=== PATIENT | male | born 1975 | race Hispanic/Latino ===

== ENCOUNTER 2019-11-26 15:16 | Inpatient (IN) | payer OTHER, SELFPAY ==
[2019-11-26] MEDS ORDERED: cefTRIAXone\\ROCEPHIN 2 GM VIAL ONE (15:36)
[2019-11-26] MEDS ORDERED: Magnesium 2 GM/50 ML BAG (IN WATER) ONE (15:36)
[2019-11-26] MEDS ORDERED: Azithromycin 500 MG VIAL ONE (15:36)
[2019-11-26] MEDS ORDERED: methylPREDNISolone Sod Succ/PF 125 MG/2 ML VIAL ONE (15:36)
[2019-11-26] MEDS ORDERED: Albuterol Sulfate 2.5 mg/3 ml Neb ONE (15:46)
[2019-11-26 15:53] LABS: #Eosinphils 0.1 thou/uL (0.0-0.7); #Lymphocytes 1.2 thou/uL (1.20-3.40); #Monocytes 0.6 thou/uL (0.11-0.59); #Neutrophils 16.4 thou/uL (1.40-6.50); %Basophils 0.1 % (0.0-1.0); %Eosinophils 0.4 % (0.0-10.0); %Lymphocytes 6.4 % (21.0-51.0); %Monocytes 3.4 % (0.0-10.0); %Neutrophils 89.8 % (42.0-75.0); Hemoglobin 16.4 g/dL (14.0-18.0); Mean Corpuscular HGB CONC 32.8 g/dL (32.0-36.0); Mean Corpuscular Hemoglobin 29.2 pg (27.0-31.0); Mean Corpuscular Volume 88.8 fL (78.0-98.0); Mean Platelet Volume 8.6 fL (7.4-10.4); Platelet Count 311 thou/uL (130-400); RBC Distribution Width 13.2 % (11.5-14.5); Red Blood Cell (RBC) Count 5.62 mill/uL (4.70-6.10); White Blood Cell (WBC) Count 18.3 thou/uL (4.8-10.8)
[2019-11-26 16:14] LABS: ALT (SGPT) 17 U/L (8-55); AST (SGOT) 10 U/L (5-34); Albumin 4.4 g/dL (3.5-5.0); Alkaline Phosphatase 60 U/L (40-110); Anion Gap 18 mmol/L (10-20); BUN (Urea Nitrogen) 16 mg/dL (8.9-20.6); Bilirubin, Total 0.3 mg/dL (0.2-1.2); Calc. Creatinine Clearance 0 mL/min (70-130); Calcium 9.5 mg/dL (7.8-10.44); Carbon Dioxide 23 mmol/L (22-29); Chloride 105 mmol/L (98-107); Estimated GFR-MDRD 85; Globulin 2.8 g/dL (2.4-3.5); Glucose 120 mg/dL (70-105); Magnesium 2.1 mg/dL (1.6-2.6); Potassium 4.6 mmol/L (3.5-5.1); Protein, Total 7.2 g/dL (6.0-8.3); Sodium 141 mmol/L (136-145)
--- NOTE | 2019-11-26 16:24 | RAD ---
RADIOGRAPH CHEST 1 VIEW: Date: 11-26-2019 Time: 3:35 P.M. HISTORY: 44-year-old male follow up pneumonia. Dyspnea. COMPARISON: 11-21-2019 FINDINGS: The previously demonstrated focal infiltrate at the right medial lung base has decreased significantl y. New finding of plate-like densities at the left mid and lower lung zones, representing subsegmental a telectasis. New finding of small patchy nodular opacity at right parahilar midlung field medially. No cardiomegaly, pulmonary edema, or pneumothorax. No effacement of lateral costophrenic angles. IMPRESSION: 1. Interval significant improvement in the previously demonstrated right lower lobe infiltrate. 2. Questionable new mild right parahilar infiltrate versus subsegmental atelectasis. 3. New subsegmental atelectasis at the left mid and lower lung zones. JN [] POS: AH
[2019-11-26 16:34] LABS: Bilirubin Negative (Negative); Blood, Urine Negative (Negative); Clarity Clear (Clear); Glucose, Urine (Dipstick) Normal (Negative); Ketone, Urine Negative (Negative); Leukocyte Negative Leu/uL (Negative); Nitrite Negative (Negative); Protein, Urine (Dipstick) Negative (Neg-Trace); Specific Gravity, Urine 1.013 (1.002-1.036); Urobilinogen Normal mg/dL (Less than 2); pH, Urine 6.5 (5.0-9.0)
[2019-11-26] MEDS ORDERED: Ondansetron PF 4 MG/2 ML Vial IVP PRN (18:39)
[2019-11-26] MEDS ORDERED: Labetalol HCl 100 MG/20 ML VIAL SLOW IVP PRN (18:39)
[2019-11-26] MEDS ORDERED: Benzonatate 100 MG CAP PO PRN (18:39)
[2019-11-26] MEDS ORDERED: Ondansetron ODT 4 MG TAB PO PRN (18:39)
[2019-11-26] MEDS ORDERED: Diabetic Tussin 200 MG/10 ML UDCUP PO PRN (18:39)
[2019-11-26 19:26] LABS: Lactic Acid 2.7 mmol/L (0.5-2.2)
[2019-11-26 20:16] VITALS: BMI 29.0
[2019-11-26] MEDS ORDERED: Montelukast Sodium 10 mg Tablet PO SCH (21:00)
[2019-11-26] MEDS: Famotidine 20 MG TAB PO SCH (21:54)
[2019-11-26] MEDS: Cefdinir 300 MG CAP PO SCH (21:54)
[2019-11-26] MEDS: Acetaminophen 500 MG TAB PO PRN (22:32)
--- NOTE | 2019-11-26 23:08 | HP ---
PRIMARY CARE PROVIDER: Cris. CHIEF COMPLAINT: Shortness of breath. HISTORY OF PRESENT ILLNESS: This is a 44-year-old male, who presents to [facility] Emergency after recent admission from 11/21/2019 through 11/23/2019, for asthma exacerbation. The patient states he was discharged home on Levaquin, prednisone, DuoNebs and Ventolin metered-dose inhaler, which he has been using repetitively without specific relief. The patient reports persistent cough, wheezing despite the use of inhalers and medication. The patient states he recently moved to the [facility] from [place], [place] and has had increased difficulty with respiratory complications over the last year. The patient admits to smoking in the past, but none currently. The patient states the asthma attacks have disrupted his life as well as causing him to lose employment due to frequent exacerbations causing him to miss work days. The patient denies any documented fever, chills, hemoptysis, chest pain, or exposure history. In the emergency room, the patient underwent general evaluation including chest imaging showing evidence of atelectasis, but no acute infiltrates. COVID-19 was negative from 11/21/2019. The patient received intravenous normal saline x2 L in addition to azithromycin, Rocephin, albuterol, DuoNebs, magnesium sulfate and Solu-Medrol. The patient's O2 saturations remain in the 93% to 94% range on room air. PAST MEDICAL HISTORY: 1. Moderate asthma with intermittent exacerbations. 2. Acute hypoxic respiratory failure due to #1. PAST SURGICAL HISTORY: Status post right wrist repair. CURRENT MEDICATIONS: 1. Levofloxacin 750 mg p.o. daily. 2. Prednisone 50 mg p.o. daily. 3. DuoNebs q.i.d. p.r.n. 4. Tramadol 50 mg p.o. b.i.d. p.r.n. 5. Ventolin metered-dose inhaler 2 puffs q.6 hours p.r.n. ALLERGIES: NO KNOWN DRUG ALLERGIES. FAMILY HISTORY: No inheritable diseases per patient report. SOCIAL HISTORY: Resides in the [facility]. Unemployed. Remote tobacco use, none currently. No alcohol or illicit drug use. Functional of all activities of daily living. REVIEW OF SYSTEMS: CONSTITUTIONAL: Negative for weight loss or gain, ability to conduct usual activities. SKIN: Negative for rash, itching. EYES: Negative for double vision, pain. ENT/MOUTH: Negative for nose bleeding, neck stiffness, pain, tenderness. CARDIOVASCULAR: Negative for palpitations, dyspnea on exertion, orthopnea. RESPIRATORY: Negative for shortness of breath, wheezing, cough, hemoptysis, fever or night sweats. GASTROINTESTINAL: Negative for poor appetite, abdominal pain, heartburn, nausea, vomiting, constipation, or diarrhea. GENITOURINARY: Negative for urgency, frequency, dysuria, nocturia. MUSCULOSKELETAL: Negative for pain, swelling. NEUROLOGIC/PSYCHIATRIC: Negative for anxiety, depression. ALLERGY/IMMUNOLOGIC: Negative for skin rash, bleeding tendency. Otherwise negative except as stated per HPI. PHYSICAL EXAMINATION: VITAL SIGNS: Blood pressure 150/86, pulse 110, respiratory rate 36, O2 saturation 93% on room air, temperature 98 degrees Fahrenheit. GENERAL APPEARANCE: This is a 44-year-old male, alert and oriented x3, pleasant, responsive, in mild respiratory distress. HEENT: Pupils are equal, round, reactive to light and accommodation. Extraocular muscles are intact. No scleral icterus. No conjunctival injection. Nares patent. OP is clear. Teeth in fair repair. NECK: Supple. No cervical adenopathy. No thyromegaly. No carotid bruits. No JVD appreciated. Cervical spine with full active and passive range of motion. No meningeal signs noted. CHEST: Diminished breath sounds bilaterally with inspiratory and expiratory wheezing. Coarse rhonchi bilaterally. CARDIOVASCULAR EXAM: S1, S2 without noted murmur, rub, or gallop. ABDOMEN: Rounded, soft, nontender, and nondistended. Bowel sounds are positive in all 4 quadrants. There is no hepatosplenomegaly. No abdominal bruits. No rebound or guarding appreciated. EXTREMITIES: Warm and dry with fair turgor. No clubbing, cyanosis, or asymmetric edema appreciated. Pulses are palpable distally at the dorsalis pedis, posterior tibial, and popliteal arteries bilaterally. Capillary refill less than 2 seconds. NEUROLOGIC: Cranial nerves 2 through 12 are grossly intact. No focal or lateralizing signs appreciated. PERTINENT LABORATORY AND X-RAY FINDINGS: Basic metabolic profile within normal limits. Lactic acid level 5.8. LFTs within normal limits. Magnesium 2.1. Troponin negative x1. BNP less than 10. CBC showed a white blood cell count of 18.3, hemoglobin 16, hematocrit 50, platelet count 311 with 90% neutrophilia. Urinalysis dated 11/26/2019 negative. IMAGING: Portable chest x-ray dated 11/26/2019, showed improved infiltrates compared with previous chest imaging from 11/21/2019. Bibasilar atelectasis noted. EKG dated from 11/26/2019, by my interpretation shows sinus mechanism with heart rates in the 90s. Normal R-wave progression noted in the precordial leads. Normal axis. No acute ST-T wave changes appreciated. ASSESSMENT AND PLAN: 1. Acute asthma exacerbation. The patient will be admitted to the telemetry unit. We will continue pulmonary supportive management. DuoNebs q.4 hours scheduled. Solu-Medrol 40 mg IV q.6 hours. Omnicef 300 mg p.o. b.i.d. Dulera 2 puffs inhaled b.i.d. Add Singulair 10 mg daily. Continue oxygen supplementation to maintain O2 saturation greater than or equal to 90%. 2. Acute hypoxic respiratory failure. Continue oxygen supplementation to maintain O2 saturation greater than or equal to 90%. Serial pulse oximetry monitoring. 3. Systemic inflammatory response syndrome. The patient meeting criteria given tachycardia and tachypnea on admission. Continue management as outlined previously. 4. Leukocytosis with neutrophilia. Suspect secondarily to recent prednisone prescription. Repeat CBC in the a.m. 5. Lactic acidosis. Suspect secondarily to asthma exacerbation. Repeat lactic acid level and continue management as outlined in #1. 6. Prophylaxis. Sequential compression devices while in bed. Pepcid 20 mg p.o. b.i.d. CODE STATUS: Full. Surrogate medical decision maker is patient's spouse. Job ID: [id number]
[2019-11-26] MEDS: methylPREDNISolone Sod Succ 40 MG VIAL IVP SCH (23:40)
[2019-11-27] MEDS ORDERED: traMADol HCl 50 MG TAB PO PRN (01:12)
[2019-11-27] MEDS ORDERED: traMADol HCl 50 MG TAB PO SCH ×2 (01:15→21:00)
[2019-11-27] MEDS: methylPREDNISolone Sod Succ 40 MG VIAL IVP SCH ×2 (06:26→11:37)
[2019-11-27] MEDS ORDERED: Mometasone 200 MCG/Formoterol 5 MCG 120 PUFF INHALER INH SCH (06:30)
[2019-11-27 06:44] LABS: #Basophils 0.1 thou/uL (0.0-0.2); #Eosinphils 0.1 thou/uL (0.0-0.7); #Lymphocytes 0.7 thou/uL (1.20-3.40); #Monocytes 0.4 thou/uL (0.11-0.59); #Neutrophils 14.3 thou/uL (1.40-6.50); %Basophils 0.4 % (0.0-1.0); %Eosinophils 0.7 % (0.0-10.0); %Lymphocytes 4.2 % (21.0-51.0); %Monocytes 2.5 % (0.0-10.0); %Neutrophils 92.2 % (42.0-75.0); Hemoglobin 14.9 g/dL (14.0-18.0); Mean Corpuscular HGB CONC 32.9 g/dL (32.0-36.0); Mean Corpuscular Hemoglobin 29.3 pg (27.0-31.0); Mean Corpuscular Volume 89.2 fL (78.0-98.0); Mean Platelet Volume 8.2 fL (7.4-10.4); Platelet Count 272 thou/uL (130-400); RBC Distribution Width 13.2 % (11.5-14.5); Red Blood Cell (RBC) Count 5.08 mill/uL (4.70-6.10); White Blood Cell (WBC) Count 15.5 thou/uL (4.8-10.8)
[2019-11-27 07:02] LABS: Anion Gap 14 mmol/L (10-20); BUN (Urea Nitrogen) 12 mg/dL (8.9-20.6); Calc. Creatinine Clearance 170 mL/min (70-130); Calcium 8.8 mg/dL (7.8-10.44); Carbon Dioxide 24 mmol/L (22-29); Chloride 105 mmol/L (98-107); Estimated GFR-MDRD Greater than 90; Glucose 109 mg/dL (70-105); Potassium 4.8 mmol/L (3.5-5.1); Sodium 138 mmol/L (136-145)
[2019-11-27] MEDS: Cefdinir 300 MG CAP PO SCH (08:42)
[2019-11-27] MEDS: Famotidine 20 MG TAB PO SCH (08:42)
[2019-11-27] MEDS ORDERED: Senokot S 8.6-50 MG TAB PO SCH (09:00)
[2019-11-27] MEDS ORDERED: Loratadine 10 MG TAB PO SCH (09:00)
--- NOTE | 2019-11-27 12:00 | PDOC.HOSPP ---
- Subjective Encounter Date: 11/27/19 Encounter Time: 11:50 Subjective: f/u for asthma exacerbation currently receiving Solumedrol/Duonebs/Dulera/Omnicef. Overall feels better but still some residual wheezing. - Objective Vital Signs & Weight: Vital Signs (12 hours) Temp Pulse Resp BP Pulse Ox 11/27/19 11:06 97.9 F 93 16 123/79 93 L 11/27/19 10:29 90 16 98 11/27/19 07:38 98.3 F 105 H 18 119/69 94 L 11/27/19 07:10 97 11/27/19 07:09 92 16 97 11/27/19 07:08 97 20 94 L 11/27/19 04:15 97.6 F 105 H 20 122/63 95 11/27/19 02:19 99 16 94 L Weight Weight 203 lb 0.732 oz I&O: 11/26/19 11/27/19 11/28/19 06:59 06:59 06:59 Intake Total 240 Balance 240 Result Diagrams: 11/27/19 06:16 11/27/19 06:15 Additional Labs: Microbiology 11/26/19 15:33 Venous blood - Right Arm Blood Culture - Preliminary Specimen has been received and culture in progress. No Growth to date. 11/26/19 15:33 Venous blood - Left Arm Blood Culture - Preliminary Specimen has been received and culture in progress. No Growth to date. Laboratory Tests 11/26/19 11/26/19 11/26/19 15:33 15:33 19:02 WBC 18.3 H Lactic Acid 5.8 H* 2.7 H EKG Reviewed by me: Yes (Tele - SR) Hospitalist ROS - Medication Medications: Active Medications Generic Name Dose Route Start Last Admin Trade Name Freq PRN Reason Stop Dose Admin Acetaminophen 1,000 mg 11/26/19 18:39 11/26/19 22:32 Acetaminophen 500 Mg Tab PO 1,000 mg Q6H PRN Administration Mild Pain (1-3) Albuterol/Ipratropium 3 ml 11/26/19 22:30 11/27/19 10:29 Ipratropium/Albuterol Sulfate 3 Ml Neb NEB 3 ml [id number] YAMINI Administration Benzonatate 100 mg 11/26/19 18:39 09/22/20 06:22 Benzonatate 100 Mg Cap PO 100 mg Q6H PRN Administration Cough Cefdinir 300 mg 11/26/19 21:00 11/27/19 08:42 Cefdinir 300 Mg Cap PO 300 mg BID YAMINI Administration Famotidine 20 mg 11/26/19 21:00 11/27/19 08:42 Famotidine 20 Mg Tab PO 20 mg BID YAMINI Administration Loratadine 10 mg 11/27/19 09:00 11/27/19 08:42 Loratadine 10 Mg Tab PO 10 mg DAILY YAMINI Administration Methylprednisolone Sodium Succinate 40 mg 11/26/19 23:59 11/27/19 11:37 Methylprednisolone Sod Succ 40 Mg Vial IVP 40 mg Q6HR YAMINI Administration Mometasone Furoate/Formoterol Fumar 2 puff 11/27/19 06:30 11/27/19 07:08 Mometasone 200 Mcg/Formoterol 5 Mcg 120 Puff Inhaler INH 2 puff BID-RT YAMINI Administration Montelukast Sodium 10 mg 11/26/19 21:00 11/26/19 21:54 Montelukast Sodium 10 Mg Tablet PO 10 mg QPM YAMNII Administration Senna/Docusate Sodium 1 tab 11/27/19 09:00 11/27/19 08:42 Senokot S 8.6-50 Mg Tab PO 1 tab BID YAMINI Administration - Exam General Appearance: NAD, awake alert Eye: PERRL, anicteric sclera ENT: normocephalic atraumatic, no oropharyngeal lesions Neck: supple, symmetric, no JVD, no thyromegaly, no lymphadenopathy Heart: RRR, no murmur, no gallops, no rubs, normal peripheral pulses Heart - other findings: S1, S2 Respiratory: rhonchi, wheezes Respiratory - other findings: diminished in bases bilat Gastrointestinal: soft, non-tender, non-distended, normal bowel sounds, no palpable masses Extremities: no cyanosis, no clubbing, no edema Skin: normal turgor, no lesions Neurological: cranial nerve grossly intact, no new deficit Musculoskeletal: normal tone, normal strength, no muscle wasting Psychiatric: normal affect, A&O x 3 Hosp A/P (1) Asthma exacerbation Code(s): J45.901 - UNSPECIFIED ASTHMA WITH (ACUTE) EXACERBATION Status: Acute Qualifiers: Asthma severity: moderate Plan: Improved, continue Solumedrol/Duonebs/Dulera/O2 PRN (2) Acute respiratory failure with hypoxia Code(s): J96.01 - ACUTE RESPIRATORY FAILURE WITH HYPOXIA Status: Acute Plan: O2 PRN, monitor serial pulse ox (3) SIRS (systemic inflammatory response syndrome) Code(s): R65.10 - SIRS OF NON-INFECTIOUS ORIGIN W/O ACUTE ORGAN DYSFUNCTION Status: Acute Plan: Improved, see above for mgmt (4) Neutrophilic leukocytosis Code(s): D72.9 - DISORDER OF WHITE BLOOD CELLS, UNSPECIFIED Status: Acute Plan: Likely due to steroids - Plan continue antibiotics, director of social media marketing, respiratory therapy, out of bed/ambulate, DVT proph w/SCDs Stable currently Continue Solumedrol Continue Dulera/Omnicef O2 PRN OOB/ambuate Likely home in am
[2019-11-27] MEDS: Acetaminophen 500 MG TAB PO PRN (13:47)
[2019-11-27 16:01] VITALS: BP 120/76; TEMP 98.4
--- NOTE | 2019-11-28 03:47 | DIS ---
DATE OF ADMISSION: 11/26/2019 DATE OF DISCHARGE: 11/27/2019 DISCHARGE DIAGNOSES: 1. Acute asthma exacerbation. 2. Acute hypoxic respiratory failure secondary to #1, improved. 3. Systemic inflammatory response syndrome. 4. Neutrophilic leukocytosis. CONSULTATIONS: None. PERTINENT LABORATORY AND X-RAY FINDINGS: Lactic acid level ranged between 2.7 to 5.8. BNP less than 10. CBC showed a white blood cell count ranging between 15.5 to 18.3. Blood cultures x2 dated 11/26/2019, showed no growth to date. Portable chest x-ray dated 11/26/2019, showed significant improvement and previously demonstrated right lower lobe infiltrate. Question of subsegmental atelectasis. HOSPITAL COURSE: The patient was initially admitted after presenting with increased shortness of breath and hypoxia in the context of known asthma. The patient was diagnosed with an asthma exacerbation, receiving DuoNeb therapy in addition to IV Solu-Medrol and Omnicef. The patient also received intravenous normal saline x2 L and placed on oxygen supplementation initially. The patient rapidly clinically improved, however, clinically exhibited inspiratory and expiratory wheezing despite O2 saturations in the 93% range on room air. The patient decided he was feeling fine and would like to leave against medical advice on 11/27/2019. The patient received instructions and left against medical advice after filling out appropriate documentation. Job ID: [id number]
--- NOTE | 2019-11-29 06:54 | PQF ---
Dear : Joselito Lomas Date 11/29/19 Please exercise your independent, professional judgment in responding to the clarification form. Clinical indicators are provided on the bottom of this form for your review Can you please further clarify if Pneumonia is ruled in or ruled out? Pneumonia [ ] Ruled in diagnosis [ ] Continue to treat [ ] Resolved [ x ] Ruled out diagnosis [ ] Improving [ ] Cannot rule out diagnosis [ ] Other diagnosis [ ] Unable to determine Physician Signature: Date/Time: For continuity of documentation, please document condition throughout progress notes and discharge summary. Thank You. To be completed by CDI/Coding staff for physician review: Present Clinical Indicators - Signs / Symptoms / Labs Results and Location in Medical Record [ x ] Pneumonia, septic shock ED Provider pg.3 [ x ] X ray shows a new infiltrate with resolving old infiltrate ED Provider pg.3 [ x ] Shortness of breath H and P pg.1 [ x ] The patient was diagnosed with an asthma exacerbation DS pg.1 [ x ] Questionable new mild right parahilar infiltrate vs subsegmental atelectasis Chest X ray pg.1 [ x ] WBC 18.3H, 15.5H Laboratory [ x ] Diminished breath sounds bilaterally with inspiratory and expiratory wheezing. Coarse rhonchi bilaterally PN 11/25 Present Risk Factors Results and Location in Medical Record [ x ] Smoke in the past H and P pg.1 [ x ] Acute hypoxic respiratory failure H and P pg.1 [ x ] Asthma H and P pg.1 [ x ] Systemic inflamatory response syndrome DS pg.1 Present Treatments Results and Location in Medical Record [ x ] Chest X ray 11/25 [ x ] IV Fluids MAR [ x ] O2 supplementation DS pg.1 [ x ] Albuterol inhalation 8.5gm MAR [ x ] Azithromycin 500mg MAR [ x ] Cefdinir 300mg po MAR CDS/Bariatric Coordinator Signature: Kevin Lopez Phone #: [phone] Date: 11/29/19 This is a permanent part of the Medical Record [facility]
== END 2019-11-27 16:42 | disposition left against medical advice (07) | DRG 189 ==
LOC: ERS 15:16 → 2NO 17:39
PROVIDERS: ADMIT Family Medicine; ATTEND Family Medicine
DX: J96.01 Acute respiratory failure with hypoxia (principal); J45.901 Unspecified asthma with (acute) exacerbation; R65.10 Systemic inflammatory response syndrome (SIRS) of non-infectious origin without acute organ dysfunction; J98.11 Atelectasis; E87.2 Acidosis; D70.8 Other neutropenia; T38.0X5A Adverse effect of glucocorticoids and synthetic analogues, initial encounter; Z20.828 Contact with and (suspected) exposure to other viral communicable diseases; Z53.29 Procedure and treatment not carried out because of patient's decision for other reasons; Z79.51 Long term (current) use of inhaled steroids; Z79.52 Long term (current) use of systemic steroids; Z87.891 Personal history of nicotine dependence
CPT/HCPCS: 36415; 71045; 80048; 80053; 81003; 83605; 83735; 83880; 84484; 85025; 87040; 90471; 90732; 93005; 94640; 94644; 96361; 96365; 96367; 96375; G0009; J0456; J0696; J2920; J2930; J3475; J7611; J7620

== ENCOUNTER 2020-12-19 12:38 | Emergency (ER) | payer SELFPAY ==
[2020-12-19 13:32] LABS: #Eosinphils 0.2 thou/uL (0.0-0.7); #Lymphocytes 1.9 thou/uL (1.20-3.40); #Monocytes 0.6 thou/uL (0.11-0.59); %Basophils 0.4 % (0.0-1.0); %Eosinophils 2.7 % (0.0-10.0); %Lymphocytes 24.4 % (21.0-51.0); %Monocytes 7.3 % (0.0-10.0); %Neutrophils 65.2 % (42.0-75.0); Hemoglobin 16.1 g/dL (14.0-18.0); Mean Corpuscular HGB CONC 35.2 g/dL (32.0-36.0); Mean Corpuscular Hemoglobin 31.5 pg (27.0-31.0); Mean Corpuscular Volume 89.3 fL (78.0-98.0); Mean Platelet Volume 9.2 fL (7.4-10.4); Platelet Count 228 thou/uL (130-400); RBC Distribution Width 12.2 % (11.5-14.5); Red Blood Cell (RBC) Count 5.12 mill/uL (4.70-6.10); White Blood Cell (WBC) Count 7.7 thou/uL (4.8-10.8)
[2020-12-19 13:50] LABS: ALT (SGPT) 20 U/L (8-55); AST (SGOT) 17 U/L (5-34); Albumin 4.3 g/dL (3.5-5.0); Alkaline Phosphatase 63 U/L (40-110); Anion Gap 14 mmol/L (10-20); BUN (Urea Nitrogen) 13 mg/dL (8.9-20.6); Bilirubin, Total 0.3 mg/dL (0.2-1.2); Calc. Creatinine Clearance 0 mL/min (70-130); Calcium 9.5 mg/dL (7.8-10.44); Carbon Dioxide 25 mmol/L (22-29); Chloride 106 mmol/L (98-107); Glucose 140 mg/dL (70-105); Potassium 4.1 mmol/L (3.5-5.1); Protein, Total 7.3 g/dL (6.0-8.3); Sodium 141 mmol/L (136-145)
[2020-12-19 13:53] LABS: Troponin I Less than 0.010 ng/mL (< 0.028)
[2020-12-19 13:53] LABS: Base Excess (BEa) -0.9 mEq/L (-2.0 to +3.0); CO2 Tension 36.1 mmHg (35.0-45.0); Carboxyhemoglobin (COHb) 4.1 gm% (0.0-3.0); Hemoglobin (Hb) 16.2 g/dL (14.0-18.0); O2 Tension (PaO2), arterial 96.4 mmHg (80.0-100.0); pH, Arterial 7.42 (7.35-7.45)
[2020-12-19 13:54] LABS: Analyzer IN Cardio ER; Calcium, Ionized (arterial) 1.16 mmol/L (1.12-1.30); Potassium - ABG Lab 3.99 mmol/L (3.70-5.30)
[2020-12-19 13:55] LABS: ALV-art Gradient 8.205 mmHg (0-20); Puncture Site RRA
[2020-12-20 01:38] LABS: SARS-CoV-2 PCR by NAA Not Detected (NotDetected)
== END 2020-12-19 15:30 | disposition home or self-care (01) ==
LOC: ERS 12:38
DX: R42 Dizziness and giddiness (principal); R05.9 Cough, unspecified; J45.909 Unspecified asthma, uncomplicated; Z20.822 Contact with and (suspected) exposure to COVID-19; Z79.52 Long term (current) use of systemic steroids; Z87.891 Personal history of nicotine dependence
CPT/HCPCS: 36415; 36600; 71045; 80053; 82805; 84443; 84484; 85025; 93005; U0003; U0005

== ENCOUNTER 2021-01-07 07:01 | Emergency (ER) | payer SELFPAY ==
[2021-01-07] MEDS ORDERED: Morphine 4 MG/ML VIAL ONE (07:44)
[2021-01-07] MEDS ORDERED: Ondansetron PF 4 MG/2 ML Vial ONE (07:44)
[2021-01-07 07:52] LABS: #Basophils 0.1 thou/uL (0.0-0.2); #Eosinphils 0.5 thou/uL (0.0-0.7); #Lymphocytes 1.3 thou/uL (1.20-3.40); #Monocytes 1.1 thou/uL (0.11-0.59); #Neutrophils 10.7 thou/uL (1.40-6.50); %Basophils 0.5 % (0.0-1.0); %Eosinophils 3.7 % (0.0-10.0); %Lymphocytes 9.6 % (21.0-51.0); %Neutrophils 78.2 % (42.0-75.0); Hemoglobin 16.8 g/dL (14.0-18.0); Mean Corpuscular HGB CONC 35.2 g/dL (32.0-36.0); Mean Corpuscular Hemoglobin 31.3 pg (27.0-31.0); Mean Corpuscular Volume 88.9 fL (78.0-98.0); Mean Platelet Volume 8.5 fL (7.4-10.4); Platelet Count 223 thou/uL (130-400); RBC Distribution Width 12.1 % (11.5-14.5); Red Blood Cell (RBC) Count 5.37 mill/uL (4.70-6.10); White Blood Cell (WBC) Count 13.7 thou/uL (4.8-10.8)
[2021-01-07 08:11] LABS: ALT (SGPT) 20 U/L (8-55); AST (SGOT) 16 U/L (5-34); Albumin 4.3 g/dL (3.5-5.0); Alkaline Phosphatase 61 U/L (40-110); Anion Gap 13 mmol/L (10-20); BUN (Urea Nitrogen) 22 mg/dL (8.9-20.6); Calc. Creatinine Clearance 0 mL/min (70-130); Calcium 9.3 mg/dL (7.8-10.44); Carbon Dioxide 26 mmol/L (22-29); Chloride 105 mmol/L (98-107); Globulin 2.8 g/dL (2.4-3.5); Glucose 92 mg/dL (70-105); Lipase 22 U/L (8-78); Potassium 4.5 mmol/L (3.5-5.1); Protein, Total 7.1 g/dL (6.0-8.3); Sodium 139 mmol/L (136-145)
[2021-01-07] MEDS ORDERED: Iopamidol-370 76% 500 ML 1 ML ONE (09:24)
== END 2021-01-07 11:35 | disposition home or self-care (01) ==
LOC: ERS 07:01
DX: R10.9 Unspecified abdominal pain (principal); J45.909 Unspecified asthma, uncomplicated; Z87.891 Personal history of nicotine dependence; Z79.899 Other long term (current) drug therapy
CPT/HCPCS: 36415; 74177; 80053; 83690; 85025; 96372; 96374; 96375; J0500; J2270; J2405; Q9967

== ENCOUNTER 2021-01-25 17:57 | Emergency (ER) | payer SELFPAY | END 2021-01-25 20:10 | disposition left against medical advice (07) | LOC: ERS 17:57 | DX: Z53.21 Procedure and treatment not carried out due to patient leaving prior to being seen by health care provider (principal) ==

== ENCOUNTER 2021-02-03 00:19 | Emergency (ER) | payer SELFPAY ==
[2021-02-03] MEDS ORDERED: Ketorolac Tromethamine 30 MG/ML VIAL ONE (01:45)
== END 2021-02-03 01:56 | disposition home or self-care (01) ==
LOC: ERS 00:19
DX: S39.012A Strain of muscle, fascia and tendon of lower back, initial encounter (principal); F17.210 Nicotine dependence, cigarettes, uncomplicated; W19.XXXA Unspecified fall, initial encounter
CPT/HCPCS: 96372; 99283; J1885

== ENCOUNTER 2023-03-03 23:58 | Emergency (ER) | payer BC ==
[2023-03-04] MEDS ORDERED: Ondansetron PF 4 MG/2 ML Vial ONE (01:15)
[2023-03-04] MEDS ORDERED: Morphine 4 MG/ML VIAL ONE (01:15)
[2023-03-04 01:19] LABS: #Eosinphils 0.1 thou/uL (0.0-0.7); #Monocytes 1.1 thou/uL (0.11-0.59); #Neutrophils 9.9 thou/uL (1.40-6.50); %Basophils 0.2 % (0.0-1.0); %Eosinophils 0.4 % (0.0-10.0); %Lymphocytes 20.9 % (21.0-51.0); %Neutrophils 69.3 % (42.0-75.0); Hematocrit 43.3 % (42.0-52.0); Hemoglobin 14.7 g/dL (14.0-18.0); Mean Corpuscular HGB CONC 33.9 g/dL (32.0-36.0); Mean Corpuscular Hemoglobin 29.9 pg (27.0-31.0); Mean Platelet Volume 10.2 fL (7.4-10.4); Platelet Count 251 10x3/uL (130-400); RBC Distribution Width 13.3 % (11.5-14.5); Red Blood Cell (RBC) Count 4.92 mill/uL (4.70-6.10); White Blood Cell (WBC) Count 14.2 10x3/uL (4.8-10.8)
[2023-03-04 01:43] LABS: ALT (SGPT) 16 U/L (8-55); AST (SGOT) 17 U/L (5-34); Albumin 3.8 g/dL (3.5-5.0); Alkaline Phosphatase 47 U/L (40-110); Anion Gap 14 mmol/L (10-20); BUN (Urea Nitrogen) 11 mg/dL (8.9-20.6); Bilirubin, Total 0.3 mg/dL (0.2-1.2); Calc. Creatinine Clearance 0 mL/min (70-130); Calcium 8.9 mg/dL (7.8-10.44); Carbon Dioxide 24 mmol/L (22-29); Chloride 101 mmol/L (98-107); Estimated GFR 111; Globulin 3.3 g/dL (2.4-3.5); Glucose 103 mg/dL (70-105); Protein, Total 7.1 g/dL (6.0-8.3); Sodium 135 mmol/L (136-145)
[2023-03-04 01:47] LABS: Troponin I Less than 0.010 ng/mL (< 0.028)
[2023-03-04] MEDS ORDERED: Iopamidol-370 76% 500 ML MDV (1 ML CHARGE) ONE (10:25)
== END 2023-03-04 03:28 | disposition home or self-care (01) ==
LOC: ERS 23:58
DX: J18.9 Pneumonia, unspecified organism (principal); J01.90 Acute sinusitis, unspecified; Z87.891 Personal history of nicotine dependence
CPT/HCPCS: 36415; 70491; 71045; 80053; 84484; 85025; 86140; 96374; 96375; J2270; J2405

== ENCOUNTER 2023-04-11 11:35 | Inpatient (IN) | payer SELFPAY ==
[2023-04-11] MEDS ORDERED: predniSONE 20 MG TAB ONE (11:54)
[2023-04-11] MEDS ORDERED: Ipratropium/Albuterol 3 ML NEB ONE ×2 (11:55→12:12)
[2023-04-11] MEDS ORDERED: Ondansetron PF 4 MG/2 ML Vial ONE (12:03)
[2023-04-11 13:53] LABS: #Neutrophils 12.2 thou/uL (1.40-6.50); %Basophils 0.2 % (0.0-1.0); %Lymphocytes 4.7 % (21.0-51.0); %Monocytes 7.4 % (0.0-10.0); %Neutrophils 86.8 % (42.0-75.0); Hematocrit 40.8 % (42.0-52.0); Hemoglobin 14.1 g/dL (14.0-18.0); Mean Corpuscular HGB CONC 34.6 g/dL (32.0-36.0); Mean Corpuscular Hemoglobin 29.7 pg (27.0-31.0); Mean Corpuscular Volume 85.9 fl (78.0-98.0); Mean Platelet Volume 10.8 fL (7.4-10.4); Platelet Count 231 10x3/uL (130-400); RBC Distribution Width 13.3 % (11.5-14.5); Red Blood Cell (RBC) Count 4.75 mill/uL (4.70-6.10); White Blood Cell (WBC) Count 14.1 10x3/uL (4.8-10.8)
[2023-04-11 14:06] LABS: PTT 33.3 sec (22.9-36.1); Prothrombin Time 13.4 sec (12.0-14.7)
[2023-04-11 14:07] LABS: D-Dimer Test 0.31 mcg/mL (0.27-0.43)
[2023-04-11 14:16] LABS: ALT (SGPT) 15 U/L (8-55); AST (SGOT) 16 U/L (5-34); Albumin 4.3 g/dL (3.5-5.0); Alkaline Phosphatase 52 U/L (40-110); Anion Gap 14 mmol/L (10-20); BUN (Urea Nitrogen) 13 mg/dL (8.9-20.6); Bilirubin, Total 0.4 mg/dL (0.2-1.2); Calc. Creatinine Clearance 0 mL/min (70-130); Calcium 8.6 mg/dL (7.8-10.44); Carbon Dioxide 24 mmol/L (22-29); Chloride 105 mmol/L (98-107); Estimated GFR 110; Globulin 2.6 g/dL (2.4-3.5); Glucose 85 mg/dL (70-105); Potassium 3.6 mmol/L (3.5-5.1); Protein, Total 6.9 g/dL (6.0-8.3); Sodium 139 mmol/L (136-145)
[2023-04-11 14:20] LABS: Troponin I Less than 0.010 ng/mL (< 0.028)
[2023-04-11] MEDS ORDERED: Dexamethasone 10 MG/ML VIAL ONE (14:46)
[2023-04-11] MEDS ORDERED: Albuterol 2.5 MG (0.5 mL) NEB ONE (14:46)
[2023-04-11] MEDS ORDERED: Sodium Chloride 0.9% 100 ML ONE (14:48)
[2023-04-11] MEDS ORDERED: cefTRIAXone (ROCEPHIN) 2 GM VIAL ONE (14:48)
[2023-04-11] MEDS ORDERED: Senokot S 8.6-50 MG TAB PO PRN (14:55)
[2023-04-11] MEDS ORDERED: Bisacodyl 5 MG TAB PO PRN (14:55)
[2023-04-11] MEDS ORDERED: Acetaminophen 650 MG Suppository PR PRN (14:55)
[2023-04-11] MEDS ORDERED: Ondansetron PF 4 MG/2 ML Vial IVP PRN (14:55)
[2023-04-11] MEDS ORDERED: Albuterol 2.5 MG (3 mL) NEB NEB PRN (14:55)
[2023-04-11] MEDS ORDERED: Acetaminophen 325 MG TAB PO PRN (14:55)
[2023-04-11 14:56] LABS: SARS-CoV-2 NAA Rapid Test Not Detected (NotDetected)
[2023-04-11] MEDS ORDERED: Azithromycin 500 MG VIAL ONE (15:04)
[2023-04-11] MEDS ORDERED: Morphine 4 MG/ML VIAL ONE (15:37)
[2023-04-11] MEDS ORDERED: tiZANidine HCl 4 MG TAB PO PRN (15:47)
[2023-04-11] MEDS: Pantoprazole 40 MG VIAL IVP SCH (16:47)
[2023-04-11 16:55] VITALS: BMI 33.0
[2023-04-11] MEDS: Magnesium 2 GM/50 ML(in water) 2 GM in Premix 1 BAG IVPB SCH (17:11)
[2023-04-11] MEDS: Oseltamivir 75 MG CAP PO SCH (17:12)
[2023-04-11] MEDS: Nicotine 14 MG PATCH TD SCH (17:12)
[2023-04-11 17:46] LABS: Strep pneumo Urine Ag NEGATIVE (NEGATIVE)
[2023-04-11] MEDS: Budesonide 0.5 MG/2 ML NEB INH SCH (18:25)
[2023-04-11] MEDS: Arformoterol 15 MCG/2 ML NEB NEB SCH (18:25)
[2023-04-11] MEDS: Albuterol 2.5 MG (3 mL) NEB NEB SCH (18:25)
[2023-04-11] MEDS: Montelukast Sodium 10 mg Tablet PO SCH (20:10)
[2023-04-11] MEDS: Cyclobenzaprine 10 MG TAB PO PRN (20:10)
[2023-04-11] MEDS: Acetaminophen/Codeine 30-300mg Tablet PO PRN (20:10)
[2023-04-11] MEDS ORDERED: Famotidine 20 MG TAB PO SCH (21:00)
[2023-04-11] MEDS ORDERED: Famotidine/PF 20 mg/2ml Vial SLOW IVP SCH (21:00)
[2023-04-11] MEDS: Morphine 4 MG/ML VIAL SLOW IVP PRN (21:30)
[2023-04-11] MEDS: Ondansetron ODT 4 MG TAB PO PRN (23:36)
[2023-04-11] MEDS: methylPREDNISolone Sod Succ 40 MG VIAL IVP SCH (23:36)
[2023-04-12 05:50] LABS: #Monocytes 0.6 thou/uL (0.11-0.59); #Neutrophils 14.9 thou/uL (1.40-6.50); %Basophils 0.1 % (0.0-1.0); %Lymphocytes 4.3 % (21.0-51.0); %Monocytes 3.6 % (0.0-10.0); %Neutrophils 91.3 % (42.0-75.0); Hematocrit 42.5 % (42.0-52.0); Hemoglobin 14.2 g/dL (14.0-18.0); Mean Corpuscular HGB CONC 33.4 g/dL (32.0-36.0); Mean Corpuscular Hemoglobin 29.4 pg (27.0-31.0); Mean Platelet Volume 10.8 fL (7.4-10.4); Platelet Count 252 10x3/uL (130-400); RBC Distribution Width 13.5 % (11.5-14.5); Red Blood Cell (RBC) Count 4.83 mill/uL (4.70-6.10); White Blood Cell (WBC) Count 16.4 10x3/uL (4.8-10.8)
[2023-04-12 06:17] LABS: Anion Gap 12 mmol/L (10-20); BUN (Urea Nitrogen) 13 mg/dL (8.9-20.6); Calc. Creatinine Clearance 173 mL/min (70-130); Calcium 9.3 mg/dL (7.8-10.44); Carbon Dioxide 24 mmol/L (22-29); Chloride 105 mmol/L (98-107); Estimated GFR 111; Glucose 144 mg/dL (70-105); Potassium 4.7 mmol/L (3.5-5.1); Sodium 136 mmol/L (136-145)
[2023-04-12] MEDS: Budesonide 0.5 MG/2 ML NEB ONE (07:10)
[2023-04-12] MEDS: Pregabalin 75 MG CAP PO SCH (08:07)
[2023-04-12] MEDS: Enoxaparin 40 MG (0.4 mL) SYRINGE SC SCH (08:08)
[2023-04-12] MEDS: Oseltamivir 75 MG CAP PO SCH (08:08)
[2023-04-12] MEDS: cefTRIAXone\\ROCEPHIN 1 GM in Sodium Chloride 0.9% 100 ML IVPB SCH (14:19)
[2023-04-12] MEDS: Azithromycin 500 MG in Sodium Chloride 0.9% 250 ML 250 ML IVPB SCH (15:06)
[2023-04-12] MEDS: Polyethylene Glycol 3350 17 GM Packet PO SCH (16:11)
[2023-04-12] MEDS: Senokot S 8.6-50 MG TAB PO SCH (16:11)
[2023-04-13] MEDS: Polyethylene Glycol 3350 17 GM Packet PO SCH (09:05)
[2023-04-13] MEDS: Senokot S 8.6-50 MG TAB PO SCH (09:06)
[2023-04-13] MEDS: methylPREDNISolone Sod Succ 40 MG VIAL IVP SCH (20:37)
[2023-04-13] MEDS: Ipratropium/Albuterol 3 ML NEB NEB SCH (22:08)
[2023-04-13] MEDS: Melatonin 3 MG TAB PO PRN (22:26)
[2023-04-14] MEDS: tiZANidine HCl 4 MG TAB PO PRN (07:35)
[2023-04-14] MEDS ORDERED: FLU VACC QS2023-24(6MOS UP)/PF 60 MCG/0.5 ML SYRINGE IM ONE (09:00)
[2023-04-15 17:36] VITALS: BP 146/88; TEMP 97.7
== END 2023-04-15 18:20 | disposition home or self-care (01) | DRG 871 ==
LOC: ERS 11:35 → MSONC 15:14 → OBSVTOIN 04-12 11:45
PROVIDERS: ADMIT Family Medicine; ATTEND Emergency Medicine
PROC: 3E03329 Introduction of Other Anti-infective into Peripheral Vein, Percutaneous Approach (ICD-10-PCS; principal; 2023-04-12)
PROC: 5A09357 Assistance with Respiratory Ventilation, Less than 24 Consecutive Hours, Continuous Positive Airway Pressure (ICD-10-PCS; 2023-04-13)
DX: A41.9 Sepsis, unspecified organism (principal); J96.01 Acute respiratory failure with hypoxia; J45.51 Severe persistent asthma with (acute) exacerbation; G89.29 Other chronic pain; J20.8 Acute bronchitis due to other specified organisms; Z98.890 Other specified postprocedural states; Z87.891 Personal history of nicotine dependence; Z79.51 Long term (current) use of inhaled steroids; Z79.899 Other long term (current) drug therapy; Z11.52 Encounter for screening for COVID-19
CPT/HCPCS: 36415; 71045; 80048; 80053; 83605; 83880; 84145; 84484; 85025; 85379; 85610; 85730; 87040; 87070; 87205; 87449; 93005; 94640; 94644; 94760; 94799; 96365; 96367; 96372; 96375; 96376; C9113; G0378; J0456; J0696; J1100; J1650; J2270; J2405; J2920; J3475; J3490; J7050; J7512; J7611; J7620; J7626; Q0162

== ENCOUNTER 2023-04-22 11:10 | Emergency (ER) | payer SELFPAY ==
[2023-04-22] MEDS ORDERED: Acetaminophen 500 MG TAB ONE (11:39)
[2023-04-22] MEDS ORDERED: Ibuprofen 200 MG TAB ONE (11:40)
[2023-04-22] MEDS ORDERED: Acyclovir 400 mg Tablet PO SCH (11:45)
== END 2023-04-22 12:30 | disposition home or self-care (01) ==
LOC: ERS 11:10
DX: B02.9 Zoster without complications (principal); J45.909 Unspecified asthma, uncomplicated; Z87.891 Personal history of nicotine dependence
CPT/HCPCS: 99283